=== PATIENT | male | born 1965 | race Caucasian/White ===

== ENCOUNTER 2021-01-19 16:25 | Emergency (ER) | payer BC, OTHER ==
[2021-01-19 16:35] VITALS: BP 132/84; PULSE 73
--- NOTE | 2021-01-19 16:48 | EDM.PDOC ---
ED HPI GENERAL MEDICAL PROBLEM - General Chief Complaint: Bite:Animal, Insect Stated Complaint: TICK BITE Time Seen by Provider: 01/19/21 16:33 Source of Information: Reports: Patient, Family (), RN Notes Reviewed History Limitations: Reports: No Limitations - History of Present Illness INITIAL COMMENTS - FREE TEXT/NARRATIVE: Patient is a 55-year-old male who presents to the ER for evaluation of his tick bite. He notes that a few days ago, he took a tick off of his right lower leg. The area seemed slightly erythematous around the wound initially, but since then it has been pruritic, he has tried to keep from scratching it however he is scratch it a few times, and this is increased the redness and swelling around the wound. Notes that it is itchy yet however it is not horribly tender. He is denying any fevers or chills, cough/shortness of breath, any sort of fatigue/lethargy, or any other worsening systemic symptoms at this time. Notes there is no pain around the site, so the pain does not seem to radiate up or down the leg at all. - Related Data Allergies Allergy/AdvReac Type Severity Reaction Status Date / Time hay fever Allergy Other Uncoded 01/19/21 16:35 Home Meds: Home Meds Omeprazole Magnesium [Prilosec Otc] 1 tab PO DAILY 07/25/15 [History] buPROPion [Wellbutrin XL] 150 mg PO DAILY 07/25/15 [History] Doxycycline [Vibramycin] 100 mg PO BID 10 Days #20 tab 01/19/21 [Rx] Past Medical History Other HEENT History: wears glasses Gastrointestinal History: Reports: GERD Other Musculoskeletal History: "many broken bones" - Past Surgical History HEENT Surgical History: Reports: Other (See Below) Other HEENT Surgeries/Procedures: left eye surgery Social & Family History - Tobacco Use Tobacco Use Status *Q: Never Tobacco User Second Hand Smoke Exposure: No - Caffeine Use Caffeine Use: Reports: Coffee, Soda - Alcohol Use Days Per Week of Alcohol Use: 7 Number of Drinks Per Day: 1 Total Drinks Per Week: 7 - Recreational Drug Use Recreational Drug Use: No ED ROS GENERAL - Review of Systems Review Of Systems: Comprehensive ROS is negative, except as noted in HPI. ED EXAM, ANIMAL BITE - Physical Exam Exam: See Below Exam Limited By: No Limitations General Appearance: Alert, WD/WN, No Apparent Distress Respiratory/Chest: No Respiratory Distress, Lungs Clear, Normal Breath Sounds, No Accessory Muscle Use, Chest Non-Tender Cardiovascular: Normal Peripheral Pulses, Regular Rate, Rhythm, No Edema Peripheral Pulses: 2+: Dorsalis Pedis (L), Dorsalis Pedis (R) Extremities: Normal Range of Motion, Normal Capillary Refill Neurological: Alert, Oriented, Normal Cognition, No Motor/Sensory Deficits Psychiatric: Normal Affect, Normal Mood Skin Exam: Normal Color, Warm/Dry, Other (Wound on the right lower leg, mid schaefer area. There is a scab in the middle of the wound, and about 4 cm surrounding erythema.) Course - Vital Signs Last Recorded V/S: Last Vital Signs Temp 97.0 F 01/19/21 16:34 Pulse 73 01/19/21 16:34 Resp 18 01/19/21 16:34 BP 132/84 01/19/21 16:34 Pulse Ox 98 01/19/21 16:34 - Re-Assessments/Exams Free Text/Narrative Re-Assessment/Exam: 01/19/21 16:50 Patient presents to the ER for the evaluation of his tick bite, it does appear as he has some sort of skin irritation/possible cellulitis due to him itching the area, he will be started on doxycycline for management. I did tell him he can try some hydrocortisone cream to the area to prevent from itching further, he verbalized understanding. Departure - Departure Time of Disposition: 16:46 Disposition: Home, Self-Care 01 Condition: Good Clinical Impression: Tick bite of lower leg Qualifiers: Encounter type: initial encounter Laterality: right Qualified Code(s): S80.861A - Insect bite (nonvenomous), right lower leg, initial encounter - Discharge Information *PRESCRIPTION DRUG MONITORING PROGRAM REVIEWED*: No *COPY OF PRESCRIPTION DRUG MONITORING REPORT IN PATIENT KAREN: No Prescriptions: Doxycycline [Vibramycin] 100 mg PO BID 10 Days #20 tab Instructions: Tick Bite Information, Adult, [id number] Referrals: Rocío Holliday PA-C [Primary Care Provider] - Forms: ED Department Discharge Additional Instructions: You were evaluated in the ER today for the tick bite on your right lower leg. You have been started on oral antibiotic called doxycycline, you will take 1 tablet 2 times a day for the next 10 days. This is due to suspected skin infection around the site of the bite. Please note that doxycycline can cause some sun sensitivity, so if you regularly outside, please use extra precaution and use sunscreen. Antibiotics can routinely take up to 48 hours to start providing effect, please keep an eye on the area, if it starts to spread more than 2 finger widths past the initial zone of infection, you should be seen by a medical provider for further inspection of the area. This medication was electronically sent to the [facility] located in the [email or web address] store. You may use topical hydrocortisone cream to the area, since it is still itchy, to help avoid itching the area and causing further infection. Please return to the ER at any time if symptoms change or worsen. Sepsis Event Note (ED) - Evaluation Sepsis Screening Result: No Definite Risk - Focused Exam Vital Signs: Vital Signs Temp Pulse Resp BP Pulse Ox 01/19/21 16:34 97.0 F 73 18 132/84 98
== END 2021-01-19 16:55 | disposition home or self-care (01) ==
LOC: JD.ED 16:25
DX: S80.861A Insect bite (nonvenomous), right lower leg, initial encounter (principal); K21.9 Gastro-esophageal reflux disease without esophagitis; Z91.09 Other allergy status, other than to drugs and biological substances; Z79.899 Other long term (current) drug therapy; W57.XXXA Bitten or stung by nonvenomous insect and other nonvenomous arthropods, initial encounter
CPT/HCPCS: 99281; 99283